=== PATIENT | male | born 1995 | race African-American/Black ===

== ENCOUNTER 2017-09-16 09:01 | Emergency (ER) | payer SELFPAY ==
[2017-09-16] MEDS ORDERED: Azithromycin 250 MG Tab PO ONE (09:20)
[2017-09-16] MEDS ORDERED: cefTRIAXone 250 MG in Lidocaine 1% 1 ML IM ONE (09:20)
[2017-09-16] MEDS ORDERED: metroNIDAZOLE 250 MG Tab PO ONE (09:20)
--- NOTE | 2017-09-16 09:24 | EDM.PDOC ---
ED HPI GENERAL MEDICAL PROBLEM - General Chief Complaint: Genitourinary Problem Stated Complaint: POSSIBLE STD Time Seen by Provider: 09/16/17 09:13 - History of Present Illness INITIAL COMMENTS - FREE TEXT/NARRATIVE: HISTORY AND PHYSICAL: History of present illness: The patient is a healthy 21-year-old male who presents with complaints of discharge from his penis that started yesterday and he is concerned about infection. The patient tells me that he is in a committed relationship and is actually here with his fiance, who is also a patient, but he did have unprotected sex with another partner and he feels that he got an infection from her. He has a history of one prior STD that was treated and he said the symptoms were similar. He has no flank pain no abdominal pain no testicular pain or swelling no external skin lesions in the genital area and no dysuria or hematuria. He has no other systemic complaints and is eating and drinking normally Review of systems: As per history of present illness and below otherwise all systems reviewed and negative. Past medical history: As per history of present illness and as reviewed below otherwise noncontributory. Surgical history: As per history of present illness and as reviewed below otherwise noncontributory. Social history: No reported history of drug or alcohol abuse. Family history: As per history of present illness and as reviewed below otherwise noncontributory. Physical exam: HEENT: Atraumatic, normocephalic, negative for conjunctival pallor or scleral icterus, mucous membranes moist, throat clear, neck supple, nontender, trachea midline. Lungs: Clear to auscultation, breath sounds equal bilaterally, chest nontender. Heart: S1S2, regular in rhythm no overt murmurs Abdomen: Soft, nondistended, nontender. NABS Negative for costovertebral tenderness. Pelvis: Deferred. Genitourinary: Testicles are descended bilaterally and there is no evidence of any gross penile or scrotal lesions. There is no gross drainage at the urethral meatus but there is some visible discharge seen in the patient's underwear Rectal: Deferred. Extremities: Atraumatic, negative for cords or calf pain. Neurovascular unremarkable. Neuro: Awake, alert, oriented. Cranial nerves II through XII unremarkable. Cerebellum unremarkable. Motor and sensory unremarkable throughout. Exam nonfocal. Diagnostics: Patient was offered STD testing and defers for treatment only Therapeutics: Rocephin and Zithromax Flagyl Impression: Penile discharge/urethritis Definitive disposition and diagnosis as appropriate pending reevaluation and review of above. - Related Data Allergies Allergy/AdvReac Type Severity Reaction Status Date / Time No Known Allergies Allergy Verified 09/16/17 09:17 Home Meds: Home Meds . [No Known Home Meds] 02/09/16 [History] Past Medical History - Past Health History Medical/Surgical History: Denies Medical/Surgical History Social & Family History - Family History Family Medical History: Noncontributory - Caffeine Use Caffeine Use: Reports: Soda ED ROS GENERAL - Review of Systems Review Of Systems: ROS reveals no pertinent complaints other than HPI. ED EXAM, GENERAL - Physical Exam Exam: See Below (see dictation) Course - Vital Signs Last Recorded V/S: Last Vital Signs Temp 36.2 C 09/16/17 09:18 Pulse 68 09/16/17 09:18 Resp 18 09/16/17 09:18 BP 136/76 09/16/17 09:18 Pulse Ox 98 09/16/17 09:18 - Orders/Labs/Meds Orders: Active Orders 24 hr Category Date Time Status Azithromycin [Zithromax] Med 09/16/17 09:20 Once 1,000 mg PO ONETIME ONE cefTRIAXone [Rocephin] 250 mg Med 09/16/17 09:20 Ordered Lidocaine 1% [Xylocaine-MPF 1%] 1 ml IM ONETIME metroNIDAZOLE Med 09/16/17 09:20 Once 2,000 mg PO NOW ONE Departure - Departure Time of Disposition: 09:23 Disposition: Home, Self-Care 01 Condition: Good Clinical Impression: Penile discharge - Discharge Information Referrals: PCP,None [Primary Care Provider] - Additional Instructions: The following information is given to patients seen in the emergency department who are being discharged to home. This information is to outline your options for follow-up care. We provide all patients seen in our emergency department with a follow-up referral. The need for follow-up, as well as the timing and circumstances, are variable depending upon the specifics of your emergency department visit. If you don't have a primary care physician on staff, we will provide you with a referral. We always advise you to contact your personal physician following an emergency department visit to inform them of the circumstance of the visit and for follow-up with them and/or the need for any referrals to a consulting specialist. The emergency department will also refer you to a specialist when appropriate. This referral assures that you have the opportunity for followup care with a specialist. All of these measure are taken in an effort to provide you with optimal care, which includes your followup. Under all circumstances we always encourage you to contact your private physician who remains a resource for coordinating your care. When calling for followup care, please make the office aware that this follow-up is from your recent emergency room visit. If for any reason you are refused follow-up, please contact the [facility] emergency department at and ask to speak to the emergency department charge nurse. [facility] Primary care- Internal Medicine and Family Prct[facility] [address] [place] [address] [id number] [facility] Specialty Care-Urology [address] [place] [id number] Please push hydration and refrain from sexual intercourse the next 5 days, and then use condoms for 5 days subsequently. Please call and follow-up with one of our providers in the clinics or with the [facility] for further evaluation and care of your symptoms. Return to ER as needed and as discussed - My Orders Last 24 Hours: My Active Orders 09/16/17 09:20 Azithromycin [Zithromax] 1,000 mg PO ONETIME ONE cefTRIAXone [Rocephin] 250 mg Lidocaine 1% [Xylocaine-MPF 1%] 1 ml IM ONETIME metroNIDAZOLE 2,000 mg PO NOW ONE - Assessment/Plan Last 24 Hours: My Active Orders 09/16/17 09:20 Azithromycin [Zithromax] 1,000 mg PO ONETIME ONE cefTRIAXone [Rocephin] 250 mg Lidocaine 1% [Xylocaine-MPF 1%] 1 ml IM ONETIME metroNIDAZOLE 2,000 mg PO NOW ONE
[2017-09-16 10:12] VITALS: BP 123/76
== END 2017-09-16 10:11 | disposition home or self-care (01) ==
LOC: MW.ED 09:01
DX: R36.9 Urethral discharge, unspecified (principal)
CPT/HCPCS: 96372; 99283; A9270; J0696; J2001; 99282